=== PATIENT | male | born 1955 | race Caucasian/White ===

== ENCOUNTER 2018-03-27 22:51 | Emergency (ER) | payer BC ==
--- NOTE | 2018-03-28 00:43 | ED ---
GI/ HPI - HPI Summary HPI Summary: This is Efren rincon Dolan documenting for attending physician Sariah Zarate MD. This patient is a 63 year old M presenting to [facility] accompanied by his with a chief complaint of rectal pain 1900. The patient rates the pain 10/10 in severity and describes the pain it feels like a pinecone is coming out of my rectum. Patient reports fever, inability to urinate, and rectal leaking. Pt states he has not urinated in several hours but he does have the urge to urinate. Patient denies hemorrhoids. Pt just arrived here from [place]. hx CVA. Pt has a history of constipation and has been straining recently. - History of Current Complaint Chief Complaint: EDRectalPain Time Seen by Provider: 03/28/18 00:30 Stated Complaint: RECTAL PAIN Hx Obtained From: Patient Onset/Duration: Started Hours Ago - 5, Still Present Timing: Lasting Hours - 5 Severity: Severe Current Severity: Severe Pain Intensity: 10 Location of Pain: Rectal Associated Signs and Symptoms: Positive: Rectal Pain, Other: - rectal bleeding - Allergy/Home Medications Allergies/Adverse Reactions: Allergies Allergy/AdvReac Type Severity Reaction Status Date / Time No Known Allergies Allergy Verified 03/27/18 22:59 PMH/Surg Hx/FS Hx/Imm Hx Endocrine/Hematology History: Denies: Hx Systemic Lupus Erythematosus Cardiovascular History: Denies: Hx Auto Implanted Cardiovert Defib Respiratory History: Denies: Hx Chronic Obstructive Pulmonary Disease (COPD) Neurological History: Reports: Hx CVA Psychiatric History: Denies: Hx Oppositional Foley Disorder - Immunization History Date of Tetanus Vaccine: unk Date of Influenza Vaccine: unk Infectious Disease History: No Infectious Disease History: Denies: Traveled Outside the [place] in Last 30 Days - Family History Known Family History: Positive: Hypertension Negative: Respiratory Disease, Seizure Disorder - Social History Lives: With Family Alcohol Use: Rare Substance Use Type: Reports: None Smoking Status (MU): Never Smoked Tobacco Review of Systems Gastrointestinal: Other - constipation Positive: Other - rectal pain Positive: other - unable to pass urine All Other Systems Reviewed And Are Negative: Yes Physical Exam - Summary Physical Exam Summary: VITAL SIGNS: Reviewed. GENERAL: Patient is a well-developed and nourished male who is lying comfortable in the stretcher. Patient is not in any acute respiratory distress. HEAD AND FACE: No signs of trauma. No ecchymosis, hematomas or skull depressions. No sinus tenderness. EYES: PERRLA, EOMI x 2, No injected conjunctiva, no nystagmus. EARS: Hearing grossly intact. Ear canals and tympanic membranes are within normal limits. MOUTH: Oropharynx within normal limits. NECK: Supple, trachea is midline, no adenopathy, no JVD, no carotid bruit, no c- spine tenderness, neck with full ROM. CHEST: Symmetric, no tenderness at palpation LUNGS: Clear to auscultation bilaterally. No wheezing or crackles. CVS: Regular rate and rhythm, S1 and S2 present, no murmurs or gallops appreciated. ABDOMEN: Soft, non-tender. No signs of distention. No rebound no guarding, and no masses palpated. Bowel sounds are normal. EXTREMITIES: FROM in all major joints, no edema, no cyanosis or clubbing. NEURO: Alert and oriented x 3. No acute neurological deficits. Speech is normal and follows commands. SKIN: Dry and warm Rectal: fecal impaction, he has mild edema around the anal area, no hemorrhoids , no bleeding, mildly ttp 300cc of urine was seen on bedside US bladder scan Triage Information Reviewed: Yes Vital Signs On Initial Exam: Initial Vitals Temp Pulse Resp BP Pulse Ox 98.5 F 90 20 152/86 99 03/27/18 22:55 03/27/18 22:55 03/27/18 22:55 03/27/18 22:55 03/27/18 22:55 Vital Signs Reviewed: Yes Diagnostics - Vital Signs Vital Signs Temp Pulse Resp BP Pulse Ox 03/27/18 22:55 98.5 F 90 20 152/86 99 - Laboratory Result Diagrams: 03/28/18 00:46 03/28/18 00:46 Lab Statement: Any lab studies that have been ordered have been reviewed, and results considered in the medical decision making process. - CT CT ABD/Pelvis CT Interpretation Completed By: Radiologist - Proctitis. No perirectal or perianal fistula or abscess. ED physician has reviewed this radiology report. GIGU Course/Dx - Course Assessment/Plan: This patient is a 63 year old M presenting to [facility] accompanied by his with a chief complaint of rectal pain 1900. The patient rates the pain 10/10 in severity and describes the pain it feels like a pinecone is coming out of my rectum. Patient reports fever, inability to urinate, and rectal leaking. Pt states he has not urinated in several hours but he does have the urge to urinate. Patient denies hemorrhoids. Pt just arrived here from [place]. CT ABD/Pelvis reveals, per radiologist, Proctitis. No perirectal or perianal fistula or abscess. Test results with no significant abnormalities. In the ED course the patient was given Augmentin and IV fluids. The patient was given an enema in the ED and passed stool. This alleviated sx. Patient will be discharged with prescription for augmentin and follow up from his PCP. The patient is agreeable with this plan. - Diagnoses Provider Diagnoses: Proctitis Discharge - Sign-Out/Discharge Documenting (check all that apply): Patient Departure - Discharge Plan Condition: Stable Disposition: HOME Prescriptions: Amoxicillin/Clavulanate TAB* [Augmentin TAB 875*] 875 mg PO BID #14 tab Patient Education Materials: Constipation (ED), Proctitis (ED), High Fiber Diet (ED) Referrals: No Primary Care Phys,NOPCP [Primary Care Provider] - Additional Instructions: Please follow up with your medical doctor in [place]. RETURN TO EMERGENCY DEPARTMENT FOR ANY NEW OR WORSENING SYMPTOMS Attestation Statement Scribe Attestation: This is Efren rincon documenting for attending physician Sariah Zarate MD. User Type: Provider with [facility] Provider Attestation: The documentation recorded by the scribe accurately reflects the service I personally performed and the decisions made by me.
[2018-03-28] MEDS ORDERED: Lidocaine 2% JELLY* 6 ML JELLY TOPICAL ONE ×2 (00:51→00:53)
[2018-03-28 00:56] LABS: Hematocrit 36 % (42-52); Hemoglobin 11.5 g/dl (14.0-18.0); Mean Corpuscular HGB Conc 32 g/dl (31-36); Mean Corpuscular Hemoglobin 21 pg (27-31); Mean Corpuscular Volume 65 fL (80-94); Mean Platelet Volume 8.7 um3 (7.4-10.4); Platelet Count 173 10^3/ul (150-450); Red Blood Count 5.45 10^6/ul (4.00-5.40); Red Cell Distribution Width 16 % (10.5-15); White Blood Count 16.2 10^3/ul (3.5-10.8)
[2018-03-28 01:11] LABS: EGFR Non-African American 84.7 (>60)
[2018-03-28 01:13] LABS: ABS Basophils 0.1 10^3/ul (0-0.2); ABS Eosinophils 0 10^3/ul (0-0.6); ABS Lymphocytes 1.8 10^3/ul (1.0-4.8); ABS Monocytes 0.9 10^3/ul (0-0.8); ABS Neutrophils 13.4 10^3/ul (1.5-7.7); ABS Nucleated RBC 0 10^3/ul; Eosinophil % 0.2 % (0-6); Lymphocyte % 10.9 % (25-47); Nucleated Red Blood Cells % 0.1; Tear Drop Cells 1+
[2018-03-28] MEDS ORDERED: NS 0.9% 1000 ML* 1,000 ML IV ONE (01:42)
[2018-03-28] MEDS ORDERED: Iohexol 300* (CONTRAST) 10 ML SDV IV ONE (02:06)
--- NOTE | 2018-03-28 04:38 | RAD ---
INDICATION: Proctitis COMPARISON: None TECHNIQUE: Axial source images were obtained from the hemidiaphragms to the symphysis pubis following administration of 99 mL Omnipaque 300. Oral contrast was not given at the request of ED. Coronal and sagittal reconstructed images were acquired. Lung bases: The lung bases are clear. Liver: The liver is normal in size. There are no masses. There is no ductal dilatation. Gallbladder: There are no calcified gallstones. There is no evidence of wall thickening or pericholecystic fluid. Spleen: The spleen is normal in size. There are no masses. Pancreas: There is no focal pancreatic mass or ductal dilatation. Adrenal glands: There is no evidence of adrenal mass. Kidneys: The kidneys are normal in size and position. There are prompt nephrograms and there is prompt excretion bilaterally. There are no renal parenchymal masses. There is no evidence of nephrolithiasis. Adenopathy: There is no evidence of adenopathy by size criteria. Fluid collections: There are no free or localized fluid collections. Vessels:There are no significant atherosclerotic changes involving the aorta. There is no focal aneurysm. The iliac vessels are normal in caliber. The IVC appears normal. GI tract: The stomach and small bowel appear normal. There is minor mural thickening of the distal colon extending to the anus. This would be consistent with proctitis as indicated in the clinical history. The remainder the colon is normal The cecum, ileocecal valve, and terminal ileum appear normal. The appendix is visualized and appear normal. Pelvic organs: The prostate and seminal vesicles appear normal Bladder: There are no bladder masses. Abdominal and pelvic soft tissues: The extraperitoneal abdominal and pelvic soft tissues appear normal.. Osseous structures: There are no acute osseous findings. There may be a transitional vertebrae. There is sacralization of the lowest lumbar vertebrae. Other: None IMPRESSION: SUSPECT MILD PROCTITIS, OTHERWISE NEGATIVE.
[2018-03-28] MEDS ORDERED: Amoxicillin/Clavulanate TAB* 875 MG PO ONE (04:44)
[2018-03-28 05:08] VITALS: BP 125/82
== END 2018-03-28 05:07 | disposition home or self-care (01) ==
LOC: ED 22:51
DX: K59.00 Constipation, unspecified (principal); K62.89 Other specified diseases of anus and rectum
CPT/HCPCS: 36415; 74177; 80053; 85025; 85060; 86140; 99283; A9270-GY; Q9967